=== PATIENT | female | born 1975 | race African-American/Black ===

== ENCOUNTER 2016-05-08 07:39 | Emergency (ER) | payer MEDICAID ==
[~2016-05-08 07:39] MED LIST: CLIN1CAP6 PO; DICL75 PO; HYDR200T3 PO; LISI-360 PO; TRIA0.1O TOP; nystatin PO
[2016-05-08 07:41] VITALS: BP 184/87; PULSE 89; RESP 20; TEMP 98.1; O2SAT 99
[2016-05-08] MEDS ORDERED: PROP20TA3 PO (07:54)
[2016-05-08] MEDS ORDERED: TRET0.0242 TOPICAL (07:54)
[2016-05-08] MEDS ORDERED: LISI10TA3 PO (07:54)
[2016-05-08] MEDS ORDERED: HYDR200T3 PO (07:54)
--- NOTE | 2016-05-08 07:56 | PD ---
HPI Chief Complaint: Abdominal Pain Time Seen by Provider: 07:47 Travel History International Travel<30 days: No Contact w/Intl Traveler<30days: No Traveled to known affect area: No History of Present Illness HPI The patient is a 41-year-old [place] female who presents emergency department for left lower quadrant abdominal pain of one week's duration. The patient has a one-week history of intermittent left lower quadrant abdominal pain that is sharp, stabbing, and similar to pain she has experienced in the past secondary to ovarian cyst, but more severe. The patient has a history of uterine ablation, denies . The patient denies any vaginal bleeding or unusual vaginal discharge. The patient denies any dysuria, frequency, or urgency. The patient denies any associated nausea, vomiting, diarrhea, or change in bowel habits. The patient does state she has been taking Tylenol over the last week, approximately one bottle worse, with minimal alleviation of her symptoms. The patient has seen her physician in the past and a spanner operator in the past, however, was told the ovarian cyst were too small for surgical intervention. 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-) Social History Alcohol Use: Yes (weekends occasionally) Tobacco Use: Yes (1/2 ppd) Substance Use: No Allergies-Medications (Allergen,Severity, Reaction): Coded Allergies: No Known Allergies (Verified , 05/08/16) Reported Meds & Prescriptions Reported Meds & Active Scripts Active Reported Retin-A Topical (Tretinoin) 0.01 % Gel 1 Applic TOPICAL DAILY Hydroxychloroquine (Hydroxychloroquine Sulfate) 200 Mg Tab 200 Mg PO DAILY Takw with food Lisinopril 10 Mg Tab 10 Mg PO DAILY Propranolol (Propranolol HCl) 20 Mg Tab 20 Mg PO DAILY Review of Systems Except as stated in HPI: all other systems reviewed are Neg General / Constitutional: No: Fever Cardiovascular: No: Chest Pain or Discomfort Respiratory: No: Shortness of Breath Gastrointestinal: Positive: Abdominal Pain (left lower quadrant abdominal pain) , No: Nausea, Vomiting, Diarrhea Genitourinary: Positive: Pelvic Pain, No: Urgency, Frequency, Dysuria, Discharge, Vaginal Bleeding Physical Exam Narrative GENERAL: Awake, alert, pleasant 41-year-old female who appears her stated age and is in no acute respiratory distress. SKIN: Warm and dry. HEAD: Atraumatic. Normocephalic. EYES: No injection or drainage. ENT: No nasal bleeding or discharge. Mucous membranes pink and moist. NECK: Trachea midline. No JVD. GASTROINTESTINAL: Abdomen soft, nontender, no rebound tenderness. Negative Sanchez's. Negative McBurney's. Back: No CVA tenderness. MUSCULOSKELETAL: No obvious deformities. No clubbing. No cyanosis. No edema. NEUROLOGICAL: Awake and alert. No obvious cranial nerve deficits. Motor grossly within normal limits. Normal speech. PSYCHIATRIC: Appropriate mood and affect; insight and judgment normal. Data Data Last Documented VS Vital Signs Date Time Temp Pulse Resp B/P Pulse Ox O2 Delivery O2 Flow Rate FiO2 05/08/16 07:41 98.1 89 20 184/87 99 Orders Complete Blood Count With Diff (05/08/16 07:47) Comprehensive Metabolic Panel (05/08/16 07:47) Urinalysis - C+S If Indicated (05/08/16 07:47) Iv Access Insert/Monitor (05/08/16 07:47) Ecg Monitoring (05/08/16 07:47) Us Pelvis Comp W Doppler (05/08/16 07:47) Ed Urine Pregnancytest Poc (05/08/16 07:47) Morphine Inj (Morphine Inj) (05/08/16 08:00) Ketorolac Inj (Toradol Inj) (05/08/16 08:00) Ondansetron Inj (Zofran Inj) (05/08/16 08:00) Tylenol (Acetaminophen) (05/08/16 07:47) Sodium Chlor 0.9% 1000 Ml Inj (Ns 1000 M (05/08/16 08:00) Lipase (05/08/16 07:47) Ketorolac Inj (Toradol Inj) (05/08/16 10:15) Labs Laboratory Tests Test 05/08/16 05/08/16 08:10 08:20 Urine Color YELLOW Urine Turbidity CLEAR Urine pH 6.0 Urine Specific [place] 1.014 Urine Protein NEG mg/dL Urine Glucose (UA) NEG mg/dL Urine Ketones NEG mg/dL Urine Occult Blood NEG Urine Nitrite NEG Urine Bilirubin NEG Urine Urobilinogen LESS THAN 2.0 MG/DL Urine Leukocyte Esterase NEG Urine RBC 1 /hpf Urine WBC LESS THAN 1 /hpf Urine Squamous Epithelial <1 /hpf Cells Microscopic Urinalysis Comment CULT NOT INDICATED White Blood Count 5.3 TH/MM3 Red Blood Count 4.01 MIL/MM3 Hemoglobin 13.1 GM/DL Hematocrit 38.5 % Mean Corpuscular Volume 96.2 FL Mean Corpuscular Hemoglobin 32.6 PG Mean Corpuscular Hemoglobin 33.9 % Concent Red Cell Distribution Width 14.9 % Platelet Count 264 TH/MM3 Mean Platelet Volume 7.4 FL Neutrophils (%) (Auto) 54.0 % Lymphocytes (%) (Auto) 34.3 % Monocytes (%) (Auto) 8.4 % Eosinophils (%) (Auto) 2.7 % Basophils (%) (Auto) 0.6 % Neutrophils # (Auto) 2.8 TH/MM3 Lymphocytes # (Auto) 1.8 TH/MM3 Monocytes # (Auto) 0.4 TH/MM3 Eosinophils # (Auto) 0.1 TH/MM3 Basophils # (Auto) 0.0 TH/MM3 CBC Comment DIFF FINAL Differential Comment Sodium Level 138 MEQ/L Potassium Level 3.4 MEQ/L Chloride Level 106 MEQ/L Carbon Dioxide Level 25.3 MEQ/L Anion Gap 7 MEQ/L Blood Urea Nitrogen 15 MG/DL Creatinine 0.82 MG/DL Estimat Glomerular Filtration 93 ML/MIN Rate Random Glucose 88 MG/DL Calcium Level 8.1 MG/DL Total Bilirubin 0.5 MG/DL Aspartate Amino Transf 12 U/L (AST/SGOT) Alanine Aminotransferase 16 U/L (ALT/SGPT) Alkaline Phosphatase 65 U/L Total Protein 6.9 GM/DL Albumin 3.6 GM/DL Lipase 218 U/L Acetaminophen Level 14.2 MCG/ML MDM Medical Decision Making Medical Screen Exam Complete: Yes Emergency Medical Condition: Yes Medical Record Reviewed: Yes Interpretation(s) Laboratory Tests Test 05/08/16 05/08/16 08:10 08:20 Urine Color YELLOW Urine Turbidity CLEAR Urine pH 6.0 Urine Specific [place] 1.014 Urine Protein NEG mg/dL Urine Glucose (UA) NEG mg/dL Urine Ketones NEG mg/dL Urine Occult Blood NEG Urine Nitrite NEG Urine Bilirubin NEG Urine Urobilinogen LESS THAN 2.0 MG/DL Urine Leukocyte Esterase NEG Urine RBC 1 /hpf Urine WBC LESS THAN 1 /hpf Urine Squamous Epithelial <1 /hpf Cells Microscopic Urinalysis Comment CULT NOT INDICATED White Blood Count 5.3 TH/MM3 Red Blood Count 4.01 MIL/MM3 Hemoglobin 13.1 GM/DL Hematocrit 38.5 % Mean Corpuscular Volume 96.2 FL Mean Corpuscular Hemoglobin 32.6 PG Mean Corpuscular Hemoglobin 33.9 % Concent Red Cell Distribution Width 14.9 % Platelet Count 264 TH/MM3 Mean Platelet Volume 7.4 FL Neutrophils (%) (Auto) 54.0 % Lymphocytes (%) (Auto) 34.3 % Monocytes (%) (Auto) 8.4 % Eosinophils (%) (Auto) 2.7 % Basophils (%) (Auto) 0.6 % Neutrophils # (Auto) 2.8 TH/MM3 Lymphocytes # (Auto) 1.8 TH/MM3 Monocytes # (Auto) 0.4 TH/MM3 Eosinophils # (Auto) 0.1 TH/MM3 Basophils # (Auto) 0.0 TH/MM3 CBC Comment DIFF FINAL Differential Comment Sodium Level 138 MEQ/L Potassium Level 3.4 MEQ/L Chloride Level 106 MEQ/L Carbon Dioxide Level 25.3 MEQ/L Anion Gap 7 MEQ/L Blood Urea Nitrogen 15 MG/DL Creatinine 0.82 MG/DL Estimat Glomerular Filtration 93 ML/MIN Rate Random Glucose 88 MG/DL Calcium Level 8.1 MG/DL Total Bilirubin 0.5 MG/DL Aspartate Amino Transf 12 U/L (AST/SGOT) Alanine Aminotransferase 16 U/L (ALT/SGPT) Alkaline Phosphatase 65 U/L Total Protein 6.9 GM/DL Albumin 3.6 GM/DL Lipase 218 U/L Acetaminophen Level 14.2 MCG/ML Ultrasound of pelvis reveals no free fluid in the cul-de-sac. Small ovarian cysts measuring 1.4 cm in the left ovary. Symmetrical blood flow to both ovaries. Differential Diagnosis Differential diagnosis includes ovarian cyst, ovarian torsion, UTI, pyelonephritis, nephrolithiasis, Tylenol toxicity, diverticulitis, atypical appendicitis, PID, cervicitis. Narrative Course IV was attempted, labs are drawn and sent, and the patient was placed on cardiac telemetry monitoring and continuous pulse oximetry monitoring. UA was sent to lab and bedside UA test was obtained. Ultrasound was ordered to evaluate for ovarian cyst and ovarian torsion. The patient was administered Toradol, morphine, Zofran, and IV fluids. Tylenol level was sent to lab. Nursing staff was unable to place an IV, therefore, I placed an ultrasound- guided IV in the left forearm without difficulty. The patient's Tylenol level was within normal limits. Laboratory evaluation was otherwise unremarkable. Ultrasound reveals a left ovarian cyst, no evidence of torsion. The patient was reassessed at 10:10 AM, her pain is significantly improved. Patient be discharged home on [place] and ibuprofen, is advised to follow-up with her primary physician. The patient will be provided a copy of her labs and ultrasound results at discharge. Procedures Procedure Narrative An ultrasound-guided IV was placed in the left forearm using a linear probe. Under ultrasound guidance I placed a 1.88 inch, 20-gauge IV, using a linear probe, in the left forearm. There is good blood return and the IV flowed easily. There is no obvious complications. The patient tolerated the procedure without difficulty. Diagnosis Primary Impression: Ovarian cyst Qualified Code: N83.202 - Cyst of left ovary Patient Instructions: General Instructions Additional Instructions: Medications as directed. Follow-up with your primary physician. Please provide the patient a copy of her ultrasound results and lab results at discharge. Return if symptoms worsen or progress. Med/Other Pt SpecificInfo: Prescription(s) given Scripts Hydrocodone-Acetaminophen ([place])5-325 mg Tab1 Tab PO Q6H PRN (PAIN) #15 TAB Ref 0 Prov:Vinicio Teixeira MD 05/08/16 Ibuprofen 600 Mg [id number] Mg PO Q6H PRN (Pain/Inflammation) #20 TAB Ref 0 Prov:Vinicio Teixeira MD 05/08/16 Disposition: DISCHARGE HOME Condition: Stable Vinicio Teixeira MD May 08, 2016 07:56
[2016-05-08] MEDS ORDERED: SODIUM CHLOR 0.9% 1000 ML INJ 1,000 ML IV ONE (08:00)
[2016-05-08] MEDS ORDERED: MORPHINE SULFATE 4 MG/ML INJ IV PUSH ONE (08:00)
[2016-05-08] MEDS ORDERED: KETOROLAC TROMETHAMINE 30 MG/ML (IVP) VIAL IV PUSH ONE ×2 (08:00→10:15)
[2016-05-08] MEDS ORDERED: ONDANSETRON HCL 4 MG/2 ML VIAL IV PUSH ONE (08:00)
[2016-05-08 08:46] LABS: BLOOD, URINE NEG (NEG); GLUCOSE,URINE NEG (NEG); KETONE, URINE NEG (NEG); NITRITE,URINE NEG (NEG); SQUAMOUS EPITHELIAL CELL URINE <1 /hpf (0-5); URINE COLOR YELLOW (YELLW/STRAW)
[2016-05-08 08:47] LABS: AUTOMATED NEUTROPHIL # 2.8 TH/MM3 (1.8-7.7); BASOPHIL % 0.6 % (0.0-2.0); EOSINOPHIL # 0.1 TH/MM3 (0-0.4); EOSINOPHIL % 2.7 % (0.0-4.0); HEMATOCRIT 38.5 % (35.0-46.0); HEMO FLAGS DIFF FINAL; LYMPH % 34.3 % (9.0-44.0); LYMPHOCYTE # 1.8 TH/MM3 (1.0-4.8); MEAN CELL VOLUME 96.2 FL (80.0-100.0); MEAN CORPUSCULAR HEMOGLOBIN 32.6 PG (27.0-34.0); MEAN CORPUSCULAR HGB CONC 33.9 % (32.0-36.0); MONO % 8.4 % (0.0-8.0); PLATELET COUNT 264 TH/MM3 (150-450); RED BLOOD COUNT 4.01 MIL/MM3 (4.00-5.30); RED CELL DISTRIBUTION WIDTH 14.9 % (11.6-17.2); WHITE BLOOD COUNT 5.3 TH/MM3 (4.0-11.0)
[2016-05-08 09:04] LABS: ALT (GPT) 16 U/L (10-53); ANION GAP 7 MEQ/L (5-15); AST (GOT) 12 U/L (15-37); BICARBONATE 25.3 MEQ/L (21.0-32.0); BLOOD UREA NITROGEN 15 MG/DL (7-18); CHLORIDE 106 MEQ/L (98-107); GLOMERULAR FILTRATION RATE 93 ML/MIN (>89); POTASSIUM 3.4 MEQ/L (3.5-5.1); SODIUM (NA) 138 MEQ/L (136-145)
[2016-05-08 09:07] LABS: ACETAMINOPHEN 14.2 MCG/ML (10.0-30.0); ALKALINE PHOSPHATASE 65 U/L (45-117); TOTAL BILIRUBIN ADULT 0.5 MG/DL (0.2-1.0)
[2016-05-08 09:08] LABS: COMMENT (UR) CULT NOT INDICATED; CULTURE IF INDICATED CULT NOT INDICATED
--- NOTE | 2016-05-08 09:24 | RADRPT ---
EXAM DATE/TIME: 05/08/2016 08:32 [facility] COMPARISON: No previous studies available for comparison. INDICATIONS: Left lower quadrant pain. MEDICAL HISTORY: Hypertension. Osteoarthritis. Lupus. Ovarian cyst. SURGICAL HISTORY: Tubal ligation. Uterine ablation. Dilation and curettage. ENCOUNTER: Initial ACUITY: 1 day PAIN SCORE: 3/10 LOCATION: Bilateral pelvis MEASUREMENTS: UTERUS: 8.1 x 4.3 x 5.5 cm ENDOMETRIAL STRIPE: 6 mm RIGHT OVARY: 2.5 x 2.4 x 2.9 cm LEFT OVARY: 4.4 x 2.9 x 3.3 cm FINDINGS: There is symmetrical blood flow to both ovaries. There is a small 1.4 cm cyst in the left ovary. Smaller cyst is seen in the right, probably follicular cyst in this woman. There is symmetrical flow to both ovaries. Small uterine fibroid is evident. CONCLUSION: 1. There is no fluid in the cul-de-sac. 2. Small left ovarian cyst. 3. Symmetrical blood flow to both ovaries. Graham Diaz MD FACR on May 08, 2016 at 9:14 Board Certified Radiologist. This report was verified electronically.
[2016-05-08] MEDS ORDERED: NORC5TAB PO (10:14)
[2016-05-08] MEDS ORDERED: IBUP-232 PO (10:14)
== END 2016-05-08 12:09 | disposition home or self-care (01) ==
LOC: NEPE 07:39
DX: N83.202 Unspecified ovarian cyst, left side (principal); I10 Essential (primary) hypertension; F17.200 Nicotine dependence, unspecified, uncomplicated; Z86.79 Personal history of other diseases of the circulatory system; Z86.2 Personal history of diseases of the blood and blood-forming organs and certain disorders involving the immune mechanism; Z87.42 Personal history of other diseases of the female genital tract
CPT/HCPCS: 76856; 80053; 80329; 81001; 83690; 84703; 85025; 93975; 96361; 96374; 96375; 96376; 99284; J1885; J2270; J2405; J7030; G0480

== ENCOUNTER 2016-12-30 12:23 | Emergency (ER) | payer MEDICAID ==
[~2016-12-30] VITALS: Ht 165.1 cm; Wt 62.0 kg
[~2016-12-30 12:23] MED LIST changes: -CLIN1CAP6 PO; -DICL75 PO; +IBUP-232 PO; -LISI-360 PO; +LISI10TA3 PO; +NORC5TAB PO; +PROP20TA3 PO; +TRET0.0242 TOPICAL; -TRIA0.1O TOP; -nystatin PO
[2016-12-30 12:25] VITALS: BP 144/93; PULSE 94; RESP 20; TEMP 98.5
[2016-12-30] MEDS ORDERED: BP Med (12:42)
--- NOTE | 2016-12-30 12:51 | PD ---
HPI Chief Complaint: Respiratory Symptoms Time Seen by Provider: 12:38 Travel History International Travel<30 days: No Contact w/Intl Traveler<30days: No Traveled to known affect area: No History of Present Illness HPI This 41-year-old female says she been sick since . She's been having a cough and runny nose. She is sneezing. She does not think he's had a fever. She is on medication for hypertension. She has been diagnosed with lupus and was on hydroxychloroquine. She smokes cigars but does not inhale. She is coughing up some phlegm. 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-) Social History Alcohol Use: Yes (weekends occasionally) Tobacco Use: Yes (3 "black and milds" daily) Substance Use: No Allergies-Medications (Allergen,Severity, Reaction): Coded Allergies: No Known Allergies (Verified , 12/30/16) Reported Meds & Prescriptions Reported Meds & Active Scripts Active Reported [BP Med] Propranolol (Propranolol HCl) 20 Mg Tab 20 Mg PO DAILY Review of Systems General / Constitutional: No: Fever, Chills Eyes: No: Diploplia, Blurred Vision HENT: No: Headaches, Vertigo Cardiovascular: No: Chest Pain or Discomfort, Palpitations Respiratory: Positive: Cough Gastrointestinal: No: Vomiting, Diarrhea Genitourinary: No: Urgency, Frequency Skin: No Rash Neurologic: No: Weakness Psychiatric: No: Anxiety, Depression Hematologic/Lymphatic: No: Easy Bruising Physical Exam Narrative GENERAL: Well-developed female SKIN: Focused skin assessment warm/dry. HEAD: Atraumatic. Normocephalic. EYES: Pupils equal and round. No scleral icterus. No injection or drainage. ENT: No nasal bleeding or discharge. Mucous membranes pink and moist. There are multiple areas of white exudate on the inside of the mouth. This exudate does not come off when scraped NECK: Trachea midline. No JVD. CARDIOVASCULAR: Regular rate and rhythm. No murmur appreciated. RESPIRATORY: No accessory muscle use. Clear to auscultation. Breath sounds equal bilaterally. GASTROINTESTINAL: Abdomen soft, non-tender, nondistended. Hepatic and splenic margins not palpable. MUSCULOSKELETAL: No obvious deformities. No clubbing. No cyanosis. No edema. NEUROLOGICAL: Awake and alert. No obvious cranial nerve deficits. Motor grossly within normal limits. Normal speech. PSYCHIATRIC: Appropriate mood and affect; insight and judgment normal. Data Data Last Documented VS Vital Signs Date Time Temp Pulse Resp B/P (MAP) Pulse Ox O2 Delivery O2 Flow Rate FiO2 12/30/16 12:25 98.5 94 20 144/93 (110) Orders Orders Complete Blood Count With Diff (12/30/16 12:47) Basic Metabolic Panel (Bmp) (12/30/16 12:47) Influenzae A/B Antigen (12/30/16 12:47) Chest, Pa & Lat (12/30/16 12:47) Group A Rapid Strep Screen (12/30/16 13:18) Strep Culture (Group A) (12/30/16 13:18) Labs Laboratory Tests Test 12/30/16 13:45 White Blood Count 7.7 TH/MM3 Red Blood Count 4.03 MIL/MM3 Hemoglobin 12.6 GM/DL Hematocrit 38.1 % Mean Corpuscular Volume 94.5 FL Mean Corpuscular Hemoglobin 31.4 PG Mean Corpuscular Hemoglobin Concent 33.2 % Red Cell Distribution Width 13.8 % Platelet Count 256 TH/MM3 Mean Platelet Volume 7.4 FL Neutrophils (%) (Auto) 60.3 % Lymphocytes (%) (Auto) 21.4 % Monocytes (%) (Auto) 8.1 % Eosinophils (%) (Auto) 6.0 % Basophils (%) (Auto) 4.2 % Neutrophils # (Auto) 4.6 TH/MM3 Lymphocytes # (Auto) 1.7 TH/MM3 Monocytes # (Auto) 0.6 TH/MM3 Eosinophils # (Auto) 0.5 TH/MM3 Basophils # (Auto) 0.3 TH/MM3 CBC Comment DIFF FINAL Differential Comment Blood Urea Nitrogen 16 MG/DL Creatinine 0.62 MG/DL Random Glucose 81 MG/DL Calcium Level 8.3 MG/DL Sodium Level 139 MEQ/L Potassium Level 4.1 MEQ/L Chloride Level 107 MEQ/L Carbon Dioxide Level 26.6 MEQ/L Anion Gap 5 MEQ/L Estimat Glomerular Filtration Rate 129 ML/MIN MDM Medical Decision Making Medical Screen Exam Complete: Yes Emergency Medical Condition: Yes Medical Record Reviewed: Yes Differential Diagnosis Differential includes influenza, viral illness, pneumonia Narrative Course Chest x-ray is negative. White count is normal. History influenza is negative. This is most consistent with a viral upper respiratory infection. The cough has been very bothersome to her I will prescribe some cough medication. I do not want to prescribe antibiotics as she's been having possible thrush. Diagnosis Primary Impression: Viral upper respiratory infection Scripts Guaifenesin-Codeine (Codeine/Guaifenesin 100-10 mg/5Ml) 10 Mg-100 Mg/5 Ml Xena 5 ML PO Q6HR for cough, #90 ML Prov: Pedro Figueroa MD 12/30/16 Disposition: 01 DISCHARGE HOME Condition: Stable Pedro Figueroa MD Dec 30, 2016 12:51
[2016-12-30 13:54] LABS: AUTOMATED NEUTROPHIL # 4.6 TH/MM3 (1.8-7.7); BASOPHIL # 0.3 TH/MM3 (0-0.2); BASOPHIL % 4.2 % (0.0-2.0); EOSINOPHIL # 0.5 TH/MM3 (0-0.4); HEMATOCRIT 38.1 % (35.0-46.0); HEMOGLOBIN 12.6 GM/DL (11.6-15.3); LYMPH % 21.4 % (9.0-44.0); LYMPHOCYTE # 1.7 TH/MM3 (1.0-4.8); MEAN CELL VOLUME 94.5 FL (80.0-100.0); MEAN CORPUSCULAR HEMOGLOBIN 31.4 PG (27.0-34.0); MEAN CORPUSCULAR HGB CONC 33.2 % (32.0-36.0); MEAN PLATELET VOLUME 7.4 FL (7.0-11.0); MONO % 8.1 % (0.0-8.0); MONOCYTE # 0.6 TH/MM3 (0-0.9); NEUT % 60.3 % (16.0-70.0); PLATELET COUNT 256 TH/MM3 (150-450); RED BLOOD COUNT 4.03 MIL/MM3 (4.00-5.30); RED CELL DISTRIBUTION WIDTH 13.8 % (11.6-17.2); WHITE BLOOD COUNT 7.7 TH/MM3 (4.0-11.0)
--- NOTE | 2016-12-30 14:14 | RADRPT ---
EXAM DATE/TIME: 12/30/2016 13:24 [facility] COMPARISON: No previous studies available for comparison. INDICATIONS : Cough, shortness of breath, flu-like symptoms for 3 days MEDICAL HISTORY : None. SURGICAL HISTORY : None. ENCOUNTER: Initial ACUITY: 3 days PAIN SCORE: 0/10 LOCATION: Bilateral chest FINDINGS: PA and lateral views of the chest demonstrate the lungs to be symmetrically aerated without evidence of mass, infiltrate or effusion. The cardiomediastinal contours are unremarkable. Osseous structure s are intact. CONCLUSION: Normal examination. Lemuel Frey MD on December 30, 2016 at 14:12 Board Certified Radiologist. This report was verified electronically.
[2016-12-30 14:15] LABS: CALCIUM 8.3 MG/DL (8.5-10.1)
[2016-12-30 14:16] LABS: BICARBONATE 26.6 MEQ/L (21.0-32.0)
[2016-12-30 14:19] LABS: CREATININE 0.62 MG/DL (0.50-1.00)
[2016-12-30] MEDS ORDERED: GUAI1SOL3 PO (14:28)
== END 2016-12-30 14:44 | disposition home or self-care (01) ==
LOC: PHED 12:23
DX: J06.9 Acute upper respiratory infection, unspecified (principal); B97.89 Other viral agents as the cause of diseases classified elsewhere; R05 Cough; I10 Essential (primary) hypertension; Z72.0 Tobacco use; Z86.2 Personal history of diseases of the blood and blood-forming organs and certain disorders involving the immune mechanism; Z86.79 Personal history of other diseases of the circulatory system
CPT/HCPCS: 71020; 80048; 85025; 87081; 87804; 87880; 99284